=== PATIENT | male | born 1950 | race African-American/Black ===

== ENCOUNTER 2016-06-26 11:49 | Day surgery (SDC) | payer BC, OTHER ==
--- NOTE | ~2016-06-26 | EGD ---
EGD REPORT [facility] [address] [address] NAME: TRELL LOCKETT : [birth year] STATUS : REG [facility] PAT#: [id number] AGE: 65 ADM/REG DATE : 06/26/16 MR#: [id number] REPORT SERV DATE: 06/26/16 DICTATED BY: ALEXANDRIA FOSTER DATE: 06/26/16 REPORT STATUS : Draft TRANSCRIBED BY: [facility] DATE: 06/26/16 Endoscopy Center Patient Name: Trell Lockett Date of : 1950 Attending MD: LORENA FOSTER MD Procedure Date No Time: 06/26/2016 Procedure: Colonoscopy Indications: Screening for colorectal malignant neoplasm Medicines: See the Anesthesia note for documentation of the administered medications Complications: No immediate complications. Estimated blood loss: None. Procedure: Pre-Anesthesia Assessment: - ASA Grade Assessment: III - A patient with severe systemic disease. - Prior to the procedure, a History and Physical was performed, and patient medications and allergies were reviewed. The patient's tolerance of previous anesthesia was also reviewed. The risks and benefits of the procedure and the sedation options and risks were discussed with the patient. All questions were answered, and informed consent was obtained. Prior Anticoagulants: The patient has taken aspirin, last dose was 2 days prior to procedure. After reviewing the risks and benefits, the patient was deemed in satisfactory condition to undergo the procedure. After I obtained informed consent, the scope was passed under direct vision. Throughout the procedure, the patient's blood pressure, pulse, and oxygen saturations were monitored continuously. The PCF [id number] was introduced through the anus and advanced to the cecum, identified by appendiceal orifice and ileocecal valve. The ileocecal valve, appendiceal orifice and rectum were photographed. The entire colon was examined. The colonoscopy was performed without difficulty. The patient tolerated the procedure well. The quality of the bowel preparation was fair. Findings: The perianal and digital rectal examinations were normal. Four sessile polyps were found in the ascending colon. The polyps were small in size. These polyps were removed with a cold snare. Resection and retrieval were complete. A sessile polyp was found at the hepatic flexure. The polyp was 4 mm in size. The polyp was removed with a cold snare. Resection and retrieval were complete. EGD REPORT [place] [id number] [place]. [address] NAME: TRELL LOCKETT : [birth year] STATUS : REG [facility]#: [id number] AGE: 65 ADM/REG DATE : 06/26/16 MR#: [id number] REPORT SERV DATE: 06/26/16 DICTATED BY: ALEXANDRIA FOSTER DATE: 06/26/16 REPORT STATUS : Draft TRANSCRIBED BY: [facility] DATE: 06/26/16 Non-bleeding internal hemorrhoids were found during retroflexion and were Grade I (internal hemorrhoids that do not prolapse). No other significant abnormalities were identified in a careful examination of the remainder of the colon. Impression: - Four small polyps in the ascending colon. Resected and retrieved. - One 4 mm polyp at the hepatic flexure. Resected and retrieved. - Non-bleeding internal hemorrhoids. Recommendation: - Patient has a contact number available for emergencies. The signs and symptoms of potential delayed complications were discussed with the patient. Return to normal activities tomorrow. Written discharge instructions were provided to the patient. - Regular diet. - Discharge patient to home. - Continue present medications. - Await pathology results. - Repeat colonoscopy in 3 years for surveillance. Procedure Code(s): --- Professional --- 45904, Colonoscopy, flexible, proximal to splenic flexure; with removal of tumor(s), polyp(s), or other lesion(s) by snare technique Diagnosis Code(s): --- Professional --- D12.3, Benign neoplasm of transverse colon D12.2, Benign neoplasm of ascending colon K64.0, First degree hemorrhoids Z12.11, Encounter for screening for malignant neoplasm of colon CPT copyright 2013 [employer]. All rights reserved. The codes documented in this report are preliminary and upon staff therapist review may be revised to meet current compliance requirements. LORENA FOSTER MD 06/26/2016 1:50 PM This report has been signed electronically. Number of Addenda: 0 Note Initiated On: 06/26/2016 1:05 PM EGD REPORT [facility] [address] [address] NAME: TRELL LOCKETT : [birth year] STATUS : REG [facility] PAT#: [id number] AGE: 65 ADM/REG DATE : 06/26/16 MR#: [id number] REPORT SERV DATE: 06/26/16 DICTATED BY: ALEXANDRIA FOSTER DATE: 06/26/16 REPORT STATUS : Draft TRANSCRIBED BY: [employer] DATE: 06/26/16 Scope Withdrawal Time 0 hours 14 minutes 6 seconds [address] [id number]
--- NOTE | ~2016-06-26 | EGD ---
EGD REPORT [facility] [address] [address] NAME: TRELL LOCKETT : [birth year] STATUS : REG [facility] PAT#: [id number] AGE: 65 ADM/REG DATE : 06/26/16 MR#: [id number] REPORT SERV DATE: 06/26/16 DICTATED BY: ALEXANDRIA FOSTER DATE: 06/26/16 REPORT STATUS : Draft [facility]ANSCRIBED BY: [facility] DATE: 06/26/16 Endoscopy Center Patient Name: Trell Lockett Date of : 1950 Attending MD: LORENA FOSTER MD Procedure Date No Time: 06/26/2016 Procedure: Upper GI endoscopy Indications: Dysphagia Medicines: See the Anesthesia note for documentation of the administered medications Complications: No immediate complications. Estimated blood loss: None. Procedure: Pre-Anesthesia Assessment: - ASA Grade Assessment: III - A patient with severe systemic disease. - Prior to the procedure, a History and Physical was performed, and patient medications and allergies were reviewed. The patient's tolerance of previous anesthesia was also reviewed. The risks and benefits of the procedure and the sedation options and risks were discussed with the patient. All questions were answered, and informed consent was obtained. Prior Anticoagulants: The patient has taken aspirin, last dose was 2 days prior to procedure. After reviewing the risks and benefits, the patient was deemed in satisfactory condition to undergo the procedure. After obtaining informed consent, the endoscope was passed under direct vision. Throughout the procedure, the patient's blood pressure, pulse, and oxygen saturations were monitored continuously. The GIF H190 [id number] was introduced through the mouth, and advanced to the second part of duodenum. The upper GI endoscopy was accomplished without difficulty. The patient tolerated the procedure well. Findings: The examined duodenum was normal. Diffuse mild inflammation characterized by congestion (edema) and erythema was found in the gastric antrum. Biopsies were taken with a cold forceps for histology. A 4 cm hiatus hernia was present. The cardia and gastric fundus were normal on retroflexion. The examined esophagus was normal. A guidewire was placed and the scope was withdrawn. Dilation was performed with a Savary dilator with no resistance at 51 Fr and no resistance at 57 Fr. EGD REPORT [address] [address] NAME: TRELL LOCKETT : [birth year] STATUS : REG [facility]#: [id number] AGE: 65 ADM/REG DATE : 06/26/16 MR#: [id number] REPORT SERV DATE: 06/26/16 DICTATED BY: ALEXANDRIA FOSTER DATE: 06/26/16 REPORT STATUS : Draft TRANSCRIBED BY: [employer] DATE: 06/26/16 Impression: - Normal examined duodenum. - Gastritis. Biopsied. - Hiatus hernia. - Normal esophagus. Dilated. Recommendation: - Patient has a contact number available for emergencies. The signs and symptoms of potential delayed complications were discussed with the patient. Return to normal activities tomorrow. Written discharge instructions were provided to the patient. - Regular diet. - Discharge patient to home. - Continue present medications. - Await pathology results. Procedure Code(s): --- Professional --- 15895, Esophagogastroduodenoscopy, flexible, transoral; with insertion of guide wire followed by passage of dilator(s) through esophagus over guide wire 81489, Esophagogastroduodenoscopy, flexible, transoral; with biopsy, single or multiple Diagnosis Code(s): --- Professional --- K29.70, Gastritis, unspecified, without bleeding K44.9, Diaphragmatic hernia without obstruction or gangrene R13.10, Dysphagia, unspecified CPT copyright 2013 [employer]. All rights reserved. The codes documented in this report are preliminary and upon engineer assistant review may be revised to meet current compliance requirements. LORENA FOSTER MD 06/26/2016 1:23 PM This report has been signed electronically. Number of Addenda: 0 Note Initiated On: 06/26/2016 1:08 PM Scope Withdrawal Time 0 hours 0 minutes 0 seconds [id number] [id number]
[~2016-06-26 11:49] MED LIST: ASAB PO; ASMANEX TWISTHALER; BROVANA15 MCG INH; COMBIVENT INH; COREG3 PO; COREG6 PO; CORTISPORIN11 OT; CYMBALTA60 PO; D.O.S.100 MG PO; FLOMAX4 PO; GLUCOPHAGE1000 MG PO; GLUCOTRO10 PO; HYDROCHLOROT25 MG PO; INSNOVN SC; KLOR-CON 1010 MEQ PO; L20 PO; LIPITOR40; LISINOPRIL40 MG PO; LOP100 PO; MELA3 PO; METFORMIN; MUCINEX600 MG PO; MYLICON 80 MG T80 MG PO; NASAREL29 MCG NAS; NEUR300 PO; NITROSTAT0.4 MG SL; NORV5 PO; P20 PO; PEP20 PO; PREPARATIO H RE; PRILO PO; PRILOSEC40 MG PO; PRIN10 PO; PROVENTSOL INH; PROVHFA INH; PULRESP.5 INH; SPIRIVA INH; SYMBICORT 160/41 INH PO; TRAZ100 PO; VIAGRA50 MG PO; VITAMIN D1000 UNI1 PO; Z100 PO; ZESTRIL10 MG PO; ZOCOR40 PO; ZOCOR80 MG PO; ZOFRAN4 PO; ZOL50 PO
== END 2016-06-26 23:59 | disposition home or self-care (01) ==
LOC: DMU 11:49
PROVIDERS: Internal Medicine Gastroenterology
PROC: 0DBK8ZZ Excision of Ascending Colon, Via Natural or Artificial Opening Endoscopic (ICD-10-PCS; principal; 2016-06-26 13:30)
PROC: 0DB68ZX Excision of Stomach, Via Natural or Artificial Opening Endoscopic, Diagnostic (ICD-10-PCS; 2016-06-26 13:30)
PROC: 0D758ZZ Dilation of Esophagus, Via Natural or Artificial Opening Endoscopic (ICD-10-PCS; 2016-06-26 13:30)
DX: Z12.11 Encounter for screening for malignant neoplasm of colon (principal); D12.2 Benign neoplasm of ascending colon; D12.3 Benign neoplasm of transverse colon; K64.0 First degree hemorrhoids; E78.5 Hyperlipidemia, unspecified; K44.9 Diaphragmatic hernia without obstruction or gangrene; K29.70 Gastritis, unspecified, without bleeding; I10 Essential (primary) hypertension; J44.9 Chronic obstructive pulmonary disease, unspecified; J45.909 Unspecified asthma, uncomplicated; E11.9 Type 2 diabetes mellitus without complications; Z87.891 Personal history of nicotine dependence
CPT/HCPCS: 82962; 88305